=== PATIENT | male | born 1945 | race Caucasian/White ===

== ENCOUNTER → 2018-04-01 | Outpatient (CLI) | payer MEDICARE, BC | END | disposition home or self-care (01) | LOC: ECT 09:19 | DX: F33.2 Major depressive disorder, recurrent severe without psychotic features (principal); N28.9 Disorder of kidney and ureter, unspecified; E11.9 Type 2 diabetes mellitus without complications; Z79.4 Long term (current) use of insulin; Z98.890 Other specified postprocedural states; E78.5 Hyperlipidemia, unspecified ==

== ENCOUNTER 2018-04-21 05:16 | Outpatient (RCR) | payer MEDICARE, BC ==
[~2018-04-21] VITALS: Ht 180.3 cm; Wt 86.2 kg
[2018-04-21] MEDS ORDERED: NS 500ML ONE ×2 (05:17)
[2018-04-21] MEDS ORDERED: Midazolam 2mg/2ml Inj ONE ×2 (05:17)
[2018-04-21] MEDS ORDERED: Methohexital Sodium 500mg Vial IVP ONE (05:17)
[2018-04-21] MEDS ORDERED: Methohexital Sodium Syr 100mg/10ml IVP ONE (05:17)
[2018-04-21] MEDS ORDERED: Succinylcholine 20mg/ml 10ml vial ONE ×2 (05:17)
[2018-04-21 09:02] VITALS: BP 169/91
[2018-04-21 09:20] VITALS: BP 187/80
[2018-04-21 09:25] VITALS: BP 184/77
[2018-04-21 09:30] VITALS: BP 191/85
[2018-04-21 09:35] VITALS: BP 180/129
[2018-04-21 11:40] VITALS: BP 169/91
[2018-04-23] MEDS ORDERED: Methohexital Sodium Syr 100mg/10ml IVP ONE (06:00)
[2018-04-23] MEDS ORDERED: Midazolam 2mg/2ml Inj ONE (06:00)
[2018-04-23] MEDS ORDERED: NS 500ML ONE (06:00)
[2018-04-23] MEDS ORDERED: Succinylcholine 20mg/ml 10ml vial ONE (06:00)
[2018-04-23 08:53] VITALS: BP 157/91
[2018-04-23 09:05] VITALS: BP 179/77
[2018-04-23 09:10] VITALS: BP 150/78
[2018-04-23 09:15] VITALS: BP 160/82
[2018-04-23 09:20] VITALS: BP 178/83
[2018-04-23 09:25] VITALS: BP 169/85
[2018-04-25] MEDS ORDERED: NS 500ML ONE (07:00)
[2018-04-25] MEDS ORDERED: Methohexital Sodium Syr 100mg/10ml IVP ONE (07:00)
[2018-04-25] MEDS ORDERED: Midazolam 2mg/2ml Inj ONE (07:00)
[2018-04-25] MEDS ORDERED: Succinylcholine 20mg/ml 10ml vial ONE (07:00)
[2018-04-25 09:03] VITALS: BP 160/96
[2018-04-25 09:20] VITALS: BP 173/77
[2018-04-25 09:25] VITALS: BP 160/77
[2018-04-25 09:30] VITALS: BP 157/77
[2018-04-25 09:35] VITALS: BP 156/78
[2018-04-28] MEDS ORDERED: NS 500ML ONE (07:00)
[2018-04-28] MEDS ORDERED: Methohexital Sodium Syr 100mg/10ml IVP ONE (07:00)
[2018-04-28] MEDS ORDERED: Midazolam 2mg/2ml Inj ONE (07:00)
[2018-04-28] MEDS ORDERED: Succinylcholine 20mg/ml 10ml vial ONE (07:00)
[2018-04-28 07:36] VITALS: BP 165/98
[2018-04-28 07:50] VITALS: BP 184/83
[2018-04-28 07:55] VITALS: BP 176/78
[2018-04-28 08:00] VITALS: BP 170/81
[2018-04-28 08:05] VITALS: BP 174/78
[2018-04-30] MEDS ORDERED: Methohexital Sodium Syr 100mg/10ml IVP ONE (08:00)
[2018-04-30] MEDS ORDERED: NS 500ML ONE (08:00)
[2018-04-30] MEDS ORDERED: Succinylcholine 20mg/ml 10ml vial ONE (08:00)
[2018-04-30] MEDS ORDERED: Midazolam 2mg/2ml Inj ONE (08:00)
[2018-04-30 10:10] VITALS: BP 147/94
[2018-04-30 10:25] VITALS: BP 157/73
[2018-04-30 10:30] VITALS: BP 150/74
[2018-04-30 10:35] VITALS: BP_SYST 146; BP_SYST 149; BP_DIAS 81; BP_DIAS 82
[2018-05-02 08:57] VITALS: BP 159/95
[2018-05-02 09:20] VITALS: BP 160/70
[2018-05-02 09:25] VITALS: BP 155/79
[2018-05-02 09:30] VITALS: BP 161/80
[2018-05-02 09:35] VITALS: BP 162/89
[2018-05-05] MEDS ORDERED: Ketamine 500mg Inj ONE (06:00)
[2018-05-05] MEDS ORDERED: Midazolam 2mg/2ml Inj ONE (06:00)
[2018-05-05] MEDS ORDERED: Succinylcholine 20mg/ml 10ml vial ONE (06:00)
[2018-05-05] MEDS ORDERED: NS 500ML ONE (06:00)
[2018-05-05 06:51] VITALS: BP 131/73
[2018-05-05] MEDS ORDERED: Atropine Sulfate 0.4mg/ml inj IVP PRN (07:08)
[2018-05-05 07:10] VITALS: BP 171/67
[2018-05-05 07:15] VITALS: BP 154/65
[2018-05-05 07:20] VITALS: BP 153/63
[2018-05-05 07:25] VITALS: BP 156/69
[2018-05-07] MEDS ORDERED: Ketamine 500mg Inj ONE (07:00)
[2018-05-07] MEDS ORDERED: Succinylcholine 20mg/ml 10ml vial ONE (07:00)
[2018-05-07] MEDS ORDERED: NS 500ML ONE (07:00)
[2018-05-07] MEDS ORDERED: Midazolam 2mg/2ml Inj ONE (07:00)
[2018-05-07 07:08] VITALS: BP 161/97
[2018-05-07 07:20] VITALS: BP 188/85
[2018-05-07 07:25] VITALS: BP 168/81
[2018-05-07 07:30] VITALS: BP 173/81
[2018-05-07 07:35] VITALS: BP 164/78
== END 2018-05-11 | disposition home or self-care (01) ==
LOC: ECT 05:16
DX: F33.2 Major depressive disorder, recurrent severe without psychotic features (principal); E78.5 Hyperlipidemia, unspecified; N28.9 Disorder of kidney and ureter, unspecified; E11.9 Type 2 diabetes mellitus without complications; Z79.4 Long term (current) use of insulin
CPT/HCPCS: 90870; J0330; J2250; J3490; J7040